=== PATIENT | female | born 1930 | race Caucasian/White ===

== ENCOUNTER → 2016-04-20 | Outpatient (CLI) | payer MEDICARE, BC ==
--- NOTE | 2016-04-21 08:45 | US ---
EXAMINATION TYPE: US pelvic complete DATE OF EXAM: 04/20/2016 3:58 PM COMPARISON: NONE CLINICAL HISTORY: R10.2 Pelvic pain. Patient denies pelvic pain and denies vaginal bleeding. Assessme nt is for pelvic followup with HX of BRCA 1 gene mutation and HX of Breast CA; . TECHNIQUE: Transabdominal (TA) pelvic ultrasound. Date of LMP: late 41. EXAM MEASUREMENTS: Uterus: 5.4 x 3.0 x 1.7 cm Endometrial Stripe: 0.2 cm Right Ovary: not seen Left Ovary: not seen TECHNOLOGIST IMPRESSION: wnl 1. Uterus: Anteverted 2. Endometrium: wnl 3. Right Ovary: not seen 4. Left Ovary: not seen 5. Bilateral Adnexa: wnl 6. Posterior cul-de-sac: wnl Visualized uterus is somewhat small in size and anteverted in shape consistent with patient's postmen opausal age. Endometrial stripe is not well seen and presumed atrophic measuring 2 mm on image saved. No free fluid is seen in pelvis. Neither ovary is identified. No suspicious adnexal masses are seen. IMPRESSION: No suspicious adnexal masses identified on images saved.
== END | disposition home or self-care (01) ==
LOC: RADUSWWP 15:24
PROVIDERS: ATTEND Internal Medicine
DX: R10.2 Pelvic and perineal pain (principal)
CPT/HCPCS: 76856

== ENCOUNTER 2018-05-22 09:05 | Emergency (ER) | payer MEDICARE, BC ==
[2018-05-22 09:11] VITALS: BP 148/72; PULSE 62; RESP 18; TEMP 98.2
--- NOTE | 2018-05-22 09:26 | ED ---
General Adult HPI - General Chief complaint: Extremity Injury, Lower Stated complaint: Fall, knee pain Time Seen by Provider: 05/22/18 09:17 Source: patient, family, RN notes reviewed Mode of arrival: wheelchair Limitations: no limitations - History of Present Illness Initial comments: Patient is a pleasant 88-year-old female presenting to the emergency Department with complaints of left knee pain. Patient states last night she was upset with a cat and turning at the throat outside. Patient states she slipped and fell on her left knee. Patient states she also struck the left side of her ribs however discomfort there is only mild. No difficulty in breathing. Patient is having difficulty ambulating using the left knee secondary to pain. Patient does have history of previous knee replacement on the left side. No significant head injury. No loss of consciousness. Patient does not take blood thinners. - Related Data Home Medications Medication Instructions Recorded Confirmed Atenolol [Tenormin] 50 mg PO BID 06/22/14 05/22/18 Lisinopril-Hctz 20-25 mg 1 each PO QAM 06/22/14 05/22/18 [Zestoretic 20-25] Sertraline [Zoloft] 100 mg PO HS 06/22/14 05/22/18 Ascorbic Acid [Vitamin C] 500 mg PO DAILY 05/22/18 05/22/18 Cholecalciferol (Vitamin D3) 2,000 unit PO DAILY 05/22/18 05/22/18 [Vitamin D3] Cyanocobalamin (Vitamin B-12) 1,000 mcg PO DAILY 05/22/18 05/22/18 [Vitamin B-12] Garlic 1 tab PO DAILY 05/22/18 05/22/18 Krill Oil 500 mg PO DAILY 05/22/18 05/22/18 Ubidecarenone [Co Q-10] 300 mg PO DAILY 05/22/18 05/22/18 Vitamin E (Dl,Tocopheryl Acet) 400 unit PO DAILY 05/22/18 05/22/18 [Vitamin E] Allergies Allergy/AdvReac Type Severity Reaction Status Date / Time procaine HCl [From Novocain] Allergy Anaphylaxis Verified 05/22/18 09:34 Sulfa (Sulfonamide Allergy Swelling Verified 05/22/18 09:34 Antibiotics) Review of Systems ROS Statement: Those systems with pertinent positive or pertinent negative responses have been documented in the HPI. ROS Other: All systems not noted in ROS Statement are negative. Constitutional: Denies: fever Eyes: Denies: eye pain ENT: Denies: ear pain Respiratory: Denies: cough, dyspnea Cardiovascular: Reports: as per HPI Endocrine: Denies: fatigue Gastrointestinal: Denies: abdominal pain Genitourinary: Denies: dysuria Musculoskeletal: Denies: back pain Skin: Denies: rash Neurological: Denies: headache, weakness, confusion Past Medical History Past Medical History: Cancer, Hyperlipidemia, Hypertension Additional Past Medical History / Comment(s): genetic breast cancer, vertigo, fell approx 2 mos ago receiving physical therapy to lt shoulder. History of Any Multi-Drug Resistant Organisms: None Reported Past Surgical History: Breast Surgery, Joint Replacement, Orthopedic Surgery Additional Past Surgical History / Comment(s): radiation of right breast summer 2013,breast cancer removed from right breast,lt cataract removed,ORIF rt elbow,lt knee partial replacement Past Anesthesia/Blood Transfusion Reactions: Previous Problems w/ Anesthesia, Motion Sickness, Postoperative Nausea & Vomiting (PONV) Additional Past Anesthesia/Blood Transfusion Reaction / Comment(s): allergy to novocain drug family,has trouble waking up from anesthesia Past Psychological History: Depression Smoking Status: Never smoker - Past Family History Daughter(s) Family Medical History: Cancer Additional Family Medical History / Comment(s): BREAST CANCER and granddaughter breast cancer General Exam Limitations: no limitations General appearance: alert, in no apparent distress Head exam: Present: atraumatic, normocephalic Eye exam: Present: normal appearance Neck exam: Present: normal inspection. Absent: tenderness Respiratory exam: Present: normal lung sounds bilaterally, other (Mild tenderness left lower lateral ribs) Cardiovascular Exam: Present: regular rate, normal rhythm Expanded Peripheral pulses: 2+: Posterior Tibialis (R), Posterior Tibialis (L) GI/Abdominal exam: Present: soft. Absent: tenderness Extremities exam: Present: tenderness (Left knee with mild to moderate anterior swelling. There is minimal associated tenderness.), other (Knee is stable. Distally the extremity is neurovascular intact.) Neurological exam: Present: alert. Absent: motor sensory deficit Psychiatric exam: Present: normal affect, normal mood Skin exam: Present: normal color. Absent: rash Course Vital Signs 05/22/18 09:08 Temperature 98.2 F Pulse Rate 62 Respiratory 18 Rate Blood Pressure 148/72 O2 Sat by Pulse 99 Oximetry Medical Decision Making - Medical Decision Making Patient reevaluated. Patient and family updated. - Radiology Data Radiology results: image reviewed (X-ray left knee shows comminuted fracture of the patella with joint effusion.) Disposition Clinical Impression: Comminuted fracture of patella Disposition: HOME SELF-CARE Condition: Stable Instructions (If sedation given, give patient instructions): Patellar Fracture (ED) Additional Instructions: Please follow-up with orthopedics and primary care physician in the next couple days for recheck. Return for increased pain, swelling, worsening symptoms or other concerns. Is patient prescribed a controlled substance at d/c from ED?: No Referrals: Renee Weiss MD [Primary Care Provider] - 1-2 days Mark Merida MD [STAFF PHYSICIAN] - 1-2 days Time of Disposition: 10:40
--- NOTE | 2018-05-22 10:11 | XR ---
EXAMINATION TYPE: XR knee 4V LT DATE OF EXAM: 05/22/2018 CLINICAL HISTORY: Fall injury with pain. TECHNIQUE: 4 views of the left knee are obtained. COMPARISON: None. FINDINGS: On all views there is irregular linear lucency consistent with comminuted minimally displac ed fracture through the patella. There is associated large suprapatellar joint effusion causing anter ior bulging of the distal quadriceps tendon. Metallic hardware from ANTOINETTE-plasty procedure medial tibi al femoral compartment is noted. Meniscal calcifications suspected laterally. IMPRESSION: There is acute comminuted minimally displaced fracture through the patella with associat ed large joint effusion. (Initial encounter closed type posttraumatic fracture)
--- NOTE | 2018-05-22 10:29 | XR ---
Chest x-ray with left RIBS HISTORY: Trauma and pain Frontal view of the chest, 4 views of the left ribs submitted. No comparisons There is no displaced rib fracture. No pneumothorax or pleural effusion. Scoliotic curvature noted in the thoracic spine. Bone mineralization is reduced which could limit sensitivity. Degenerative disc changes in the visualized spine. The aorta is dense. Arthropathy noted shoulders. Prominence of the p ulmonary arteries could be due to underlying pulmonary artery hypertension. Increased heart size may be accentuated by rotation. Surgical clips present over the right chest. Prominent lung volumes nikolas tible with underlying COPD. There are some contour anomalies present at the fourth and fifth ribs lat erally. IMPRESSION: No acute cardiopulmonary disease. For increased sensitivity bone scan could be performed.
[2018-05-22] MEDS ORDERED: ACETAMINOPHEN TAB 325 MG TAB PO STA (10:40)
== END 2018-05-22 10:56 | disposition home or self-care (01) ==
LOC: EC 09:05
DX: S82.042A Displaced comminuted fracture of left patella, initial encounter for closed fracture (principal); I10 Essential (primary) hypertension; F32.9 Major depressive disorder, single episode, unspecified; Z79.899 Other long term (current) drug therapy; Z88.2 Allergy status to sulfonamides; Z88.4 Allergy status to anesthetic agent; Z96.652 Presence of left artificial knee joint; Z85.3 Personal history of malignant neoplasm of breast; W01.0XXA Fall on same level from slipping, tripping and stumbling without subsequent striking against object, initial encounter; Y92.009 Unspecified place in unspecified non-institutional (private) residence as the place of occurrence of the external cause
CPT/HCPCS: 99283

== ENCOUNTER → 2019-09-22 | Outpatient (CLI) | payer MEDICARE ==
--- NOTE | 2019-09-22 17:26 | XR ---
EXAMINATION TYPE: XR foot complete RT DATE OF EXAM: 09/22/2019 CLINICAL HISTORY: Right foot pain. Lump on top of foot for 2 to 3 years. No known injury. TECHNIQUE: Frontal, lateral, and oblique images of the right foot are obtained. COMPARISON: None FINDINGS: There is no acute fracture/dislocation evident in the right foot. There is degenerative sp urring of the mid foot articulations. There is a 1.1 x 3.2 cm focal soft tissue density of the volar foot at the level of the distal carpal bones. There is also a 1.3 x 2.3 cm calcified lesion of the me dial foot overlapping the medial aspect of the navicular bone, with somewhat linear striations. There is no evidence of osseous erosion or periosteal reaction. Plantar spur. There is decreased osseous m ineralization. IMPRESSION: Indeterminate 3.2 cm focal soft tissue density of the volar foot. 2.3 cm calcified lesion overlapping the medial aspect of the navicular bone best appreciated on lateral view only, which may represent heterotropic ossification due to sequela of prior trauma, although nonspecific. There is n o evidence of osseous erosion or periosteal reaction associated with these lesions. Recommend follow- up with contrast-enhanced MRI examination of the foot.
== END | disposition home or self-care (01) ==
LOC: RADXRYALE 11:29
PROVIDERS: ATTEND Internal Medicine
DX: M79.671 Pain in right foot (principal)

== ENCOUNTER → 2019-10-30 | Outpatient (CLI) | payer MEDICARE ==
--- NOTE | 2019-10-30 14:04 | MR ---
EXAMINATION TYPE: MR foot RT wo con DATE OF EXAM: 10/30/2019 COMPARISON: Radiographs 09/22/2019 HISTORY: 89-year-old female with right foot pain, foot lesion TECHNIQUE: Multiplanar, multisequence images of the right foot were obtained without IV contrast. FINDINGS: There is underlying midfoot degenerative change with areas of subchondral signal change suggests that the navicular lateral cuneiform joint, second TMT joint, and navicular medial cuneiform joint. There is a moderately complex 3.0 x 1.2 x 2.4 cm ganglion cyst along the dorsal medial mid foot at th e level of the navicular medial cuneiform joint. Tibialis anterior traverses this cyst. Generalized soft tissue swelling. There is a partial split tear of the peroneal brevis tendon just below the level of the lateral malle olus. No retracted tear. Some interstitial tearing of the inframalleolar posterior tibial tendon. No acute fracture seen. Preserved fatty signal in the sinus tarsi. Subtalar joint is aligned. No delineation to the Achilles tendon. Moderate first MTP joint effusion. IMPRESSION: 1. Scattered moderate midfoot osteoarthrosis. 2. A sizable ganglion cyst measuring 3.0 x 2.4 x 1.2 cm along the dorsomedial midfoot at the level of the navicular medial cuneiform joint. A few internal septations are present. This could be arising f rom the underlying degenerative joint or could be a ganglion cyst associated with the anterior tibial tendon as the tendon courses through this structure. 3. Generalized soft tissue swelling. Suggestion of a partial split tear of the peroneus brevis at and below the lateral malleolus.
== END | disposition home or self-care (01) ==
LOC: RADMRIMAIN 12:41
PROVIDERS: ATTEND Internal Medicine
DX: M19.071 Primary osteoarthritis, right ankle and foot (principal); M67.471 Ganglion, right ankle and foot

== ENCOUNTER 2020-01-31 01:53 | Emergency (ER) | payer MEDICARE ==
[2020-01-31 02:00] VITALS: TEMP 98.9
--- NOTE | 2020-01-31 02:32 | ED ---
Headache HPI - General Mode of arrival: ambulatory <Rachelle Eckert - Last Filed: 01/31/20 02:18> <Vahe Roach - Last Filed: 01/31/20 05:29> - General Chief Complaint: Headache Stated Complaint: lt side neck,shoulder/jaw pain Time Seen by Provider: 01/31/20 02:03 - History of Present Illness Initial Comments: 89-year-old female patient presents to the emergency department today for evaluation of left-sided facial pain. Patient states she woke this morning and had a dull achy pain to the left side of her face and surrounding the left eye and into the neck. Denies any chest pain, arm pain. Denies any blurred or double vision. Denies history of similar symptoms. States that she does feel "woozy". Does report some nausea today denies any vomiting. States that she has drank several glasses of water today but was unable to eat. Denies any recent fall or head injury. Reports only having history of hypertension and some mild depression. Denies any numbness, tingling, or weakness to her extremities. Denies numbness or tingling to her face. Patient denies any recent rash, fever, chills, cough, shortness of breath, abdominal pain, diarrhea, c onstipation, back pain, dizziness, weakness, hematuria, dysuria, urinary urgency, urinary frequency, or any other complaints. (Rachelle Eckert) - Related Data Home Medications Medication Instructions Recorded Confirmed Lisinopril-Hctz 20-25 mg 1 each PO QAM 06/22/14 05/22/18 [Zestoretic 20-25] Sertraline [Zoloft] 100 mg PO HS 06/22/14 05/22/18 atenoloL [Tenormin] 50 mg PO BID 06/22/14 05/22/18 Ascorbic Acid [Vitamin C] 500 mg PO DAILY 05/22/18 05/22/18 Cholecalciferol (Vitamin D3) 2,000 unit PO DAILY 05/22/18 05/22/18 [Vitamin D3] Cyanocobalamin (Vitamin B-12) 1,000 mcg PO DAILY 05/22/18 05/22/18 [Vitamin B-12] Garlic 1 tab PO DAILY 05/22/18 05/22/18 Krill Oil 500 mg PO DAILY 05/22/18 05/22/18 Ubidecarenone [Co Q-10] 300 mg PO DAILY 05/22/18 05/22/18 Vitamin E (Dl,Tocopheryl Acet) 400 unit PO DAILY 05/22/18 05/22/18 [Vitamin E] Previous Rx's Medication Instructions Recorded Meclizine [Antivert] 25 mg PO TID PRN #15 tab 01/31/20 Allergies Allergy/AdvReac Type Severity Reaction Status Date / Time procaine HCl [From Novocain] Allergy Anaphylaxis Verified 01/31/20 02:00 Sulfa (Sulfonamide Allergy Swelling Verified 01/31/20 02:00 Antibiotics) ibuprofen [From Motrin] AdvReac Unknown Verified 01/31/20 02:00 Review of Systems ROS Other: All systems not noted in ROS Statement are negative. <Rachelle Eckert - Last Filed: 01/31/20 02:18> ROS Other: All systems not noted in ROS Statement are negative. <Vahe Roach - Last Filed: 01/31/20 05:29> ROS Statement: Those systems with pertinent positive or pertinent negative responses have been documented in the HPI. Past Medical History Past Medical History: Cancer, Hyperlipidemia, Hypertension Additional Past Medical History / Comment(s): genetic breast cancer, vertigo, fell approx 2 mos ago receiving physical therapy to lt shoulder. History of Any Multi-Drug Resistant Organisms: None Reported Past Surgical History: Breast Surgery, Joint Replacement, Orthopedic Surgery Additional Past Surgical History / Comment(s): radiation of right breast summer 2013,breast cancer removed from right breast,lt cataract removed,ORIF rt elbow,lt knee partial replacement Past Anesthesia/Blood Transfusion Reactions: Previous Problems w/ Anesthesia, Motion Sickness, Postoperative Nausea & Vomiting (PONV) Additional Past Anesthesia/Blood Transfusion Reaction / Comment(s): allergy to novocain drug family,has trouble waking up from anesthesia Past Psychological History: Depression Smoking Status: Never smoker Past Alcohol Use History: None Reported Past Drug Use History: None Reported - Past Family History Daughter(s) Family Medical History: Cancer Additional Family Medical History / Comment(s): BREAST CANCER and granddaughter breast cancer <Rachelle Eckert - Last Filed: 01/31/20 02:18> General Exam General appearance: alert, in no apparent distress, other (Physical well- developed, well-nourished adult female patient in no acute distress. Vital signs upon presentation are temperature 98.9F, pulse 68, respirations 18, blood pressure 181/87, pulse ox 98% on room air.) <Rachelle Eckert - Last Filed: 01/31/20 02:18> Course Vital Signs 01/31/20 01:57 Temperature 98.9 F Pulse Rate 68 Respiratory 18 Rate Blood Pressure 181/87 O2 Sat by Pulse 98 Oximetry Medical Decision Making - Lab Data Result diagrams: 01/31/20 02:26 01/31/20 02:26 <Vahe Roach - Last Filed: 01/31/20 05:29> - Medical Decision Making This patient is an 89-year-old woman here for evaluation of headache and also which she describes as a woozy feeling. I saw this patient in conjunction with the nurse practitioner. I performed independent history and physical exam. Agree with case management. I specifically did palpate the bilateral temporal arteries. They are nontender. Pulses symmetric. Patient's sed rate not markedly elevated as would be expected for temporal arteritis, and C-reactive protein is negative. I did mention that should she begin to express any tenderness she should immediately return. She is otherwise to follow-up for further headache evaluation. Return parameters discussed (Vahe Roach) - Lab Data Lab Results 01/31/20 01/31/20 01/31/20 Range/Units 02:26 02:26 02:26 WBC 9.5 (3.8-10.6) k/uL RBC 3.96 (3.80-5.40) m/uL Hgb 12.2 (11.4-16.0) gm/dL Hct 38.2 (34.0-46.0) % MCV 96.6 (80.0-100.0) fL MCH 30.8 (25.0-35.0) pg MCHC 31.9 (31.0-37.0) g/dL RDW 13.4 (11.5-15.5) % Plt Count 267 (150-450) k/uL MPV 7.6 Neutrophils % 81 % Lymphocytes % 12 % Monocytes % 4 % Eosinophils % 2 % Basophils % 0 % Neutrophils # 7.7 (1.3-7.7) k/uL Lymphocytes # 1.1 (1.0-4.8) k/uL Monocytes # 0.4 (0-1.0) k/uL Eosinophils # 0.2 (0-0.7) k/uL Basophils # 0.0 (0-0.2) k/uL ESR 29 H (0-20) mm/hr PT 10.2 (9.0-12.0) sec INR 1.0 (<1.2) APTT 21.7 L (22.0-30.0) sec Sodium 137 (137-145) mmol/L Potassium 4.7 (3.5-5.1) mmol/L Chloride 100 (98-107) mmol/L Carbon Dioxide 30 (22-30) mmol/L Anion Gap 7 mmol/L BUN 26 H (7-17) mg/dL Creatinine 0.96 (0.52-1.04) mg/dL Est GFR (CKD-EPI)AfAm 61 (>60 ml/min/1.73 sqM) Est GFR (CKD-EPI)NonAf 53 (>60 ml/min/1.73 sqM) Glucose 125 H (74-99) mg/dL Calcium 10.3 H (8.4-10.2) mg/dL Total Bilirubin 0.7 (0.2-1.3) mg/dL AST 29 (14-36) U/L ALT 16 (4-34) U/L Alkaline Phosphatase 49 (38-126) U/L C-Reactive Protein <5.0 (<10.0) mg/L Total Protein 7.9 (6.3-8.2) g/dL Albumin 4.3 (3.5-5.0) g/dL Disposition <Rachelle Eckert - Last Filed: 01/31/20 02:18> Is patient prescribed a controlled substance at d/c from ED?: No <Vahe Roach - Last Filed: 01/31/20 05:29> Clinical Impression: Headache Disposition: HOME SELF-CARE Condition: Fair Instructions (If sedation given, give patient instructions): Acute Headache (ED) Prescriptions: Meclizine [Antivert] 25 mg PO TID PRN #15 tab PRN Reason: Vertigo Referrals: Renee eWiss MD [Primary Care Provider] - 1-2 days Wyatt Reyes MD [REFERRING] - 1-2 days
--- NOTE | 2020-01-31 02:58 | CT ---
EXAM: CT Head Without Intravenous Contrast CLINICAL HISTORY: ITS.REASON CT Reason: Headache; eye pain TECHNIQUE: Axial computed tomography images of the head/brain without intravenous contrast. CTDI is 45.2 mGy and DLP is 1166 mGy-cm. This CT exam was performed using one or more of the following dose reduction techniques: automated exposure control, adjustment of the mA and/or kV according to patient size, and/or use of iterative reconstruction technique. COMPARISON: No relevant prior studies available. FINDINGS: Brain: No acute infarct, hemorrhage, mass or edema. Chronic small vessel ischemic disease and senescent changes. Ventricles: Unremarkable. No ventriculomegaly. Bones/joints: Unremarkable. No acute calvarial fracture. Soft tissues: Unremarkable. Sinuses: Minimal mucosal thickening of the paranasal sinuses. Mastoid air cells: Unremarkable as visualized. IMPRESSION: No acute findings in the head/brain.
--- NOTE | 2020-01-31 03:00 | CT ---
EXAM: CT Maxillofacial Without Intravenous Contrast CLINICAL HISTORY: ITS.REASON CT Reason: Headache; eye pain TECHNIQUE: Axial computed tomography images of the face without intravenous contrast. CTDI is 0.17 mGy and DLP is 4.4 mGy-cm. This CT exam was performed using one or more of the following dose reduction techniques: automated exposure control, adjustment of the mA and/or kV according to patient size, and/or use of iterative reconstruction technique. COMPARISON: No relevant prior studies available. FINDINGS: Bones/joints: Marked degenerative changes of the left temporomandibular joint. No acute fracture. Soft tissues: Unremarkable. Orbits: Unremarkable. Sinuses: Mild mucosal thickening in the paranasal sinuses. IMPRESSION: 1. Mild mucosal thickening in the paranasal sinuses. 2. Marked degenerative changes of the left temporomandibular joint.
[2020-01-31 03:10] LABS: Basophils % (A) 0 %; Eosinophils # (A) 0.2 k/uL (0-0.7); Eosinophils % (A) 2 %; HCT 38.2 % (34.0-46.0); HGB 12.2 gm/dL (11.4-16.0); Lymphocytes # (A) 1.1 k/uL (1.0-4.8); Lymphocytes % (A) 12 %; MCH 30.8 pg (25.0-35.0); MCHC 31.9 g/dL (31.0-37.0); MCV 96.6 fL (80.0-100.0); Mean Platelet Volume 7.6; Monocytes # (A) 0.4 k/uL (0-1.0); Monocytes % (A) 4 %; Neutrophils # (A) 7.7 k/uL (1.3-7.7); Neutrophils % (A) 81 %; Platelet Count 267 k/uL (150-450); RBC 3.96 m/uL (3.80-5.40); RDW 13.4 % (11.5-15.5); WBC 9.5 k/uL (3.8-10.6)
[2020-01-31 03:15] LABS: ALT 16 U/L (4-34); AST 29 U/L (14-36); African American GFR (CKD) 61 (>60 ml/min/1.73 sqM); Albumin 4.3 g/dL (3.5-5.0); Alkaline Phosphatase 49 U/L (38-126); Anion Gap 7 mmol/L; Blood Urea Nitrogen 26 mg/dL (7-17); Calcium 10.3 mg/dL (8.4-10.2); Carbon Dioxide 30 mmol/L (22-30); Chloride 100 mmol/L (98-107); Glucose 125 mg/dL (74-99); Non-African American GFR(CKD) 53 (>60 ml/min/1.73 sqM); Potassium 4.7 mmol/L (3.5-5.1); Sodium 137 mmol/L (137-145); Total Bilirubin 0.7 mg/dL (0.2-1.3); Total Protein 7.9 g/dL (6.3-8.2)
[2020-01-31 03:22] LABS: Prothrombin Time 10.2 sec (9.0-12.0)
[2020-01-31 03:28] LABS: Partial Thromboplastin Time 21.7 sec (22.0-30.0)
[2020-01-31 03:58] LABS: C Reactive Protein <5.0 mg/L (<10.0)
[2020-01-31 04:50] LABS: Erythrocyte Sedimentation Rate 29 mm/hr (0-20)
[2020-01-31] MEDS ORDERED: MECLIZINE 12.5 MG TAB PO STA (05:18)
[2020-01-31 06:09] VITALS: BP 130/78; PULSE 78; RESP 16
== END 2020-01-31 06:09 | disposition home or self-care (01) ==
LOC: EC 01:53
DX: R51.9 Headache, unspecified (principal); R42 Dizziness and giddiness; R11.0 Nausea; M54.2 Cervicalgia; F32.9 Major depressive disorder, single episode, unspecified; E78.5 Hyperlipidemia, unspecified; I10 Essential (primary) hypertension; Z79.899 Other long term (current) drug therapy; Z88.2 Allergy status to sulfonamides; Z88.6 Allergy status to analgesic agent; Z88.8 Allergy status to other drugs, medicaments and biological substances; Z85.3 Personal history of malignant neoplasm of breast; Z92.3 Personal history of irradiation; Z96.652 Presence of left artificial knee joint
CPT/HCPCS: 36415; 70450; 70486; 80053; 85025; 85610; 85652; 85730; 86140; 99284

== ENCOUNTER 2020-03-18 16:12 | Emergency (ER) | payer MEDICARE ==
[2020-03-18 16:26] VITALS: BP 135/75; PULSE 73; RESP 18; TEMP 98.8
--- NOTE | 2020-03-18 17:17 | XR ---
EXAMINATION TYPE: XR chest 1V portable DATE OF EXAM: 03/18/2020 COMPARISON: NONE HISTORY: Fever. TECHNIQUE: Single frontal view of the chest is obtained. FINDINGS: There is no focal air space opacity, pleural effusion, or pneumothorax seen. The cardiac silhouette size is within normal limits. The osseous structures are intact. IMPRESSION: No acute process.
--- NOTE | 2020-03-18 17:22 | ED ---
General Adult HPI - General Chief complaint: Fever Stated complaint: Weakness Time Seen by Provider: 03/18/20 16:30 Source: patient Mode of arrival: wheelchair Limitations: no limitations - History of Present Illness Initial comments: Dictation was produced using [employer] dictation software. please excuse any grammatical, word or spelling errors. This patient was cared for during a federal and state declared state of emergency secondary to Covid 19 Chief Complaint: 89-year-old female past medical history dyslipidemia hypertension and breast cancer presents with myalgias, body aches fever and cough History of Present Illness: 89-year-old female she reports that over the last couple days she is developed myalgias, cough, body aches and fever. Patient states she was seen in urgent care and was tested for cold weight however her PCR results are not available yet. She came to be further evaluated. Patient denies any shortness of breath. She states that she is mostly at home and is not exposed to people except for around [place] time. She states that one of her family members tested positive for coronavirus. The ROS documented in this emergency department record has been reviewed and confirmed by me. Those systems with pertinent positive or negative responses have been documented in the HPI. All other systems are other negative and/or noncontributory. PHYSICAL EXAM: General Impression: Alert and oriented x3, not in acute distress HEENT: Normocephalic atraumatic, extra-ocular movements intact, pupils equal and reactive to light bilaterally, mucous membranes moist. Cardiovascular: Heart regular rate and rhythm Chest: Able to complete full sentences, no retractions, no tachypnea Abdomen: abdomen soft, non-tender, non-distended, no organomegaly Musculoskeletal: Pulses present and equal in all extremities, no peripheral edema Motor: no focal deficits noted Neurological: CN II-XII grossly intact, no focal motor or sensory deficits noted Skin: Intact with no visualized rashes Psych: Normal affect and mood ED course: 89-year-old feel presents with coronavirus-type symptoms. As upon arrival are within acceptable limits. Patient is not hypoxic. Chest x-ray shows no acute processes. Rapid coronavirus test is positive. She not showing signs of respiratory distress.Laboratory evaluation obtained. Labs are unremarkable.Return precautions were discussed patient. Patient is agreeable with disposition. - Related Data Home Medications Medication Instructions Recorded Confirmed Lisinopril-Hctz 20-25 mg 1 each PO QAM 06/22/14 05/22/18 [Zestoretic 20-25] Sertraline [Zoloft] 100 mg PO HS 06/22/14 05/22/18 atenoloL [Tenormin] 50 mg PO BID 06/22/14 05/22/18 Ascorbic Acid [Vitamin C] 500 mg PO DAILY 05/22/18 05/22/18 Cholecalciferol (Vitamin D3) 2,000 unit PO DAILY 05/22/18 05/22/18 [Vitamin D3] Cyanocobalamin (Vitamin B-12) 1,000 mcg PO DAILY 05/22/18 05/22/18 [Vitamin B-12] Garlic 1 tab PO DAILY 05/22/18 05/22/18 Krill Oil 500 mg PO DAILY 05/22/18 05/22/18 Ubidecarenone [Co Q-10] 300 mg PO DAILY 05/22/18 05/22/18 Vitamin E (Dl,Tocopheryl Acet) 400 unit PO DAILY 05/22/18 05/22/18 [Vitamin E] Previous Rx's Medication Instructions Recorded Meclizine [Antivert] 25 mg PO TID PRN #15 tab 01/31/20 Allergies Allergy/AdvReac Type Severity Reaction Status Date / Time procaine HCl [From Novocain] Allergy Anaphylaxis Verified 03/18/20 16:27 Sulfa (Sulfonamide Allergy Swelling Verified 03/18/20 16:27 Antibiotics) ibuprofen [From Motrin] AdvReac Unknown Verified 03/18/20 16:27 Review of Systems ROS Statement: Those systems with pertinent positive or pertinent negative responses have been documented in the HPI. ROS Other: All systems not noted in ROS Statement are negative. Past Medical History Past Medical History: Cancer, Hyperlipidemia, Hypertension Additional Past Medical History / Comment(s): genetic breast cancer, vertigo, fell approx 2 mos ago receiving physical therapy to lt shoulder. History of Any Multi-Drug Resistant Organisms: None Reported Past Surgical History: Breast Surgery, Joint Replacement, Orthopedic Surgery Additional Past Surgical History / Comment(s): radiation of right breast summer 2013,breast cancer removed from right breast,lt cataract removed,ORIF rt elbow,lt knee partial replacement Past Anesthesia/Blood Transfusion Reactions: Previous Problems w/ Anesthesia, Motion Sickness, Postoperative Nausea & Vomiting (PONV) Additional Past Anesthesia/Blood Transfusion Reaction / Comment(s): allergy to novocain drug family,has trouble waking up from anesthesia Past Psychological History: Depression Smoking Status: Never smoker Past Alcohol Use History: None Reported Past Drug Use History: None Reported - Past Family History Daughter(s) Family Medical History: Cancer Additional Family Medical History / Comment(s): BREAST CANCER and granddaughter breast cancer General Exam Limitations: no limitations Course Vital Signs 03/18/20 16:19 Temperature 98.8 F Pulse Rate 73 Respiratory 18 Rate Blood Pressure 135/75 O2 Sat by Pulse 95 Oximetry Medical Decision Making - Lab Data Result diagrams: 03/18/20 17:11 03/18/20 17:11 Lab Results 03/18/20 03/18/20 03/18/20 Range/Units 16:40 17:11 17:11 WBC 4.6 (3.8-10.6) k/uL RBC 3.77 L (3.80-5.40) m/uL Hgb 12.1 (11.4-16.0) gm/dL Hct 35.6 (34.0-46.0) % MCV 94.4 (80.0-100.0) fL MCH 32.1 (25.0-35.0) pg MCHC 34.0 (31.0-37.0) g/dL RDW 12.5 (11.5-15.5) % Plt Count 181 (150-450) k/uL MPV 7.7 Neutrophils % 72 % Lymphocytes % 17 % Monocytes % 8 % Eosinophils % 1 % Basophils % 2 % Neutrophils # 3.3 (1.3-7.7) k/uL Lymphocytes # 0.8 L (1.0-4.8) k/uL Monocytes # 0.4 (0-1.0) k/uL Eosinophils # 0.0 (0-0.7) k/uL Basophils # 0.1 (0-0.2) k/uL Sodium 136 L (137-145) mmol/L Potassium 4.1 (3.5-5.1) mmol/L Chloride 99 (98-107) mmol/L Carbon Dioxide 29 (22-30) mmol/L Anion Gap 8 mmol/L BUN 33 H (7-17) mg/dL Creatinine 1.07 H (0.52-1.04) mg/dL Est GFR (CKD-EPI)AfAm 54 (>60 ml/min/1.73 sqM) Est GFR (CKD-EPI)NonAf 46 (>60 ml/min/1.73 sqM) Glucose 100 H (74-99) mg/dL Calcium 9.2 (8.4-10.2) mg/dL C-Reactive Protein 61.4 H (<10.0) mg/L Coronavirus (PCR) Detected A (Not Detectd) Disposition Clinical Impression: COVID-19 Disposition: HOME SELF-CARE Condition: Good Instructions (If sedation given, give patient instructions): Viral Pneumonia (ED) Additional Instructions: Today you were evaluated for symptoms consistent with upper respiratory infection. You tested positive for Covid 19. Your are stable for discharge, h owever it is instructed to to seek immediate medical attention especially if you develop worsening symptoms especially respiratory distress. In the meantime please remain in quarantine for 14 days. For any other questions please contact [facility] for here in emergency department or [facility], [place], operated by [facility] at [phone] Is patient prescribed a controlled substance at d/c from ED?: No Referrals: Renee Weiss MD [Primary Care Provider] - 1-2 days Time of Disposition: 18:14
[2020-03-18 17:36] LABS: Basophils # (A) 0.1 k/uL (0-0.2); Basophils % (A) 2 %; Eosinophils % (A) 1 %; HCT 35.6 % (34.0-46.0); HGB 12.1 gm/dL (11.4-16.0); Lymphocytes # (A) 0.8 k/uL (1.0-4.8); Lymphocytes % (A) 17 %; MCH 32.1 pg (25.0-35.0); MCV 94.4 fL (80.0-100.0); Mean Platelet Volume 7.7; Monocytes # (A) 0.4 k/uL (0-1.0); Monocytes % (A) 8 %; Neutrophils # (A) 3.3 k/uL (1.3-7.7); Neutrophils % (A) 72 %; Platelet Count 181 k/uL (150-450); RBC 3.77 m/uL (3.80-5.40); RDW 12.5 % (11.5-15.5); WBC 4.6 k/uL (3.8-10.6)
[2020-03-18 17:55] LABS: C Reactive Protein 61.4 mg/L (<10.0); Calcium 9.2 mg/dL (8.4-10.2); Potassium 4.1 mmol/L (3.5-5.1)
== END 2020-03-18 18:31 | disposition home or self-care (01) ==
LOC: EC 16:12
DX: U07.1 COVID-19 (principal); I10 Essential (primary) hypertension; E78.5 Hyperlipidemia, unspecified; F32.9 Major depressive disorder, single episode, unspecified; Z79.899 Other long term (current) drug therapy; Z88.2 Allergy status to sulfonamides; Z88.7 Allergy status to serum and vaccine; Z88.6 Allergy status to analgesic agent; Z85.3 Personal history of malignant neoplasm of breast; Z96.652 Presence of left artificial knee joint; Z92.3 Personal history of irradiation
CPT/HCPCS: 36415; 71045; 80048; 85025; 86140; 87635; 99283